=== PATIENT | female | born 1930 | race Caucasian/White ===

== ENCOUNTER 2017-03-20 13:33 | Emergency (ER) | payer OTHER ==
[~2017-03-20] VITALS: Ht 154.9 cm; Wt 70.3 kg
[~2017-03-20 13:33] MED LIST: ATIVAN1 MG PO; Advair HFA 115/21 IH; Ativan PO; CALTRATE 6001 TABLE2 PO; CENTRUM SILV1 TABLE1 PO; CENTRUM SILVER1 EAC3 PO; Colace PO; Ecotrin PO; FISH OIL SOFTG1 EACH PO; Feosol PO; HUMULIN 50100 UNIT/1 SC; HUMULIN N300 UNIT/3 SC; IMDUR60 MG PO; ISOSORBIDE MONO60 MG; LANTUS 3 M100 UNITS/ SC; LOSARTAN POTASS50 MG PO; Lopressor PO; METOPROLOL SUC100 MG PO; MIRALAX17 GM PO; Metamucil Packet PO; NITROSTAT,NITR0.4 M1 SL; NovoLIN N (NPH),Humu SC; OYST-CAL D, OS500 M1 PO; Omega III EPA + DHA PO; PEPCID20 MG PO; PREVACID30 MG PO; PROAIR HFA8.5 GM IH; PROTONIX40 MG PO; Robitussin AC,Tussi- PO; SENNA8.6 MG PO; SIMVASTATIN40 M1 PO; SPIRIVA1 INHALATI IH; Senokot,Sennagen PO; THERAGRAN1 TABLET PO; Tylenol Regular Stre PO; Vitamin B Complex PO; Zocor PO; Zoloft PO; predniSONE PO
[2017-03-20] MEDS ORDERED: VALIUM2 MG PO (17:23)
[2017-03-20] MEDS ORDERED: ULTRACET1 TABLET PO (17:23)
[2017-03-20] MEDS ORDERED: MOTRIN600 MG PO (17:23)
[2017-03-20 17:37] VITALS: BP 113/87
== END 2017-03-20 17:39 | disposition home or self-care (01) ==
LOC: EME 13:33
DX: M54.12 Radiculopathy, cervical region (principal); M50.30 Other cervical disc degeneration, unspecified cervical region; M51.37 Other intervertebral disc degeneration, lumbosacral region; M70.62 Trochanteric bursitis, left hip; M16.12 Unilateral primary osteoarthritis, left hip; G89.29 Other chronic pain; E11.9 Type 2 diabetes mellitus without complications; J44.9 Chronic obstructive pulmonary disease, unspecified; E78.5 Hyperlipidemia, unspecified; I10 Essential (primary) hypertension; I25.2 Old myocardial infarction; K21.9 Gastro-esophageal reflux disease without esophagitis; Z85.828 Personal history of other malignant neoplasm of skin; Z85.43 Personal history of malignant neoplasm of ovary; Z95.1 Presence of aortocoronary bypass graft; Z79.4 Long term (current) use of insulin; Z87.891 Personal history of nicotine dependence
CPT/HCPCS: 72040; 72100; 73502; 93005; 99281; 99284; J3010

== ENCOUNTER 2017-12-30 07:23 | Emergency (ER) | payer OTHER ==
[~2017-12-30] VITALS: Ht 154.9 cm; Wt 57.4 kg
[~2017-12-30 07:23] MED LIST changes: +MOTRIN600 MG PO; +ULTRACET1 TABLET PO; +VALIUM2 MG PO
[2017-12-30 07:56] LABS: HEMATOCRIT 40.2 % (36.0-46.0); HEMOGLOBIN 13.1 G/DL (11.9-15.5); MCH 30.4 PG (29.0-34.0); MCHC 32.6 G/DL (30.0-36.0); MCV 93.3 FL (83-99); PLATELET COUNT 181 K/uL (156-360); RBC DIS.WIDTH-CV 13.5 % (11.8-14.6); RBC DIS.WIDTH-SD 46.2 % (39-53); RED BLOOD COUNT 4.31 M/uL (3.80-5.20); WHITE BLOOD COUNT 7.5 K/uL (4.1-10.2)
[2017-12-30 08:24] LABS: CHLORIDE 99 MEQ/L (99-109); CREATININE 1.1 MG/DL (0.6-1.3); GFR ESTIMATE (CALCULATED) 50 mL/min/; GLUCOSE 133 mg/dL (70-99); POTASSIUM 4.1 MEQ/L (3.7-5.4); SODIUM 136 MEQ/L (136-147); UREA NITROGEN (BUN) 13 mg/dL (9-23)
[2017-12-30 08:27] LABS: TROP-I INTERPRETATION NEGATIVE; TROPONIN-I 0.01 ng/mL (0.0-0.30)
[2017-12-30 09:19] LABS: APPEARANCE SL.HAZY ((CLEAR)); BILIRUBIN NEGATIVE; BLOOD SMALL; COLOR YELLOW ((YELLOW)); GLUCOSE (STRIP) NEGATIVE; KETONES NEGATIVE; LEUKOCYTES MODERATE; NITRITE NEGATIVE; PROTEIN (STRIP) NEGATIVE; SPECIFIC GRAVITY 1.006 (1.000-1.030); UROBILINOGEN 0.2 MG/DL (0.2-1.0)
[2017-12-30 09:24] LABS: BACTERIA 2+ /HPF; CALCIUM OXALATE CRYSTALS 2+ /HPF; EPITHELIAL CELLS RARE /HPF; MUCUS NONE SEEN /LPF; RED BLOOD CELLS 0-5 /HPF (0-5); UCUL ADDED? YES; WHITE BLOOD CELLS 0-5 /HPF (0-5)
[2017-12-30] MEDS ORDERED: KEFLEX500 MG PO (11:03)
[2017-12-30 11:31] VITALS: BP 134/97
== END 2017-12-30 11:42 | disposition home or self-care (01) ==
LOC: EME 07:23
PROVIDERS: Emergency Medicine
DX: N39.0 Urinary tract infection, site not specified (principal); M25.552 Pain in left hip; G89.29 Other chronic pain; I10 Essential (primary) hypertension; E11.9 Type 2 diabetes mellitus without complications; E78.5 Hyperlipidemia, unspecified; J44.9 Chronic obstructive pulmonary disease, unspecified; K21.9 Gastro-esophageal reflux disease without esophagitis; F41.9 Anxiety disorder, unspecified; F32.9 Major depressive disorder, single episode, unspecified; I25.2 Old myocardial infarction; Z95.1 Presence of aortocoronary bypass graft; Z87.891 Personal history of nicotine dependence; Z85.43 Personal history of malignant neoplasm of ovary; Z85.828 Personal history of other malignant neoplasm of skin; Z79.4 Long term (current) use of insulin; Z91.040 Latex allergy status; Z88.2 Allergy status to sulfonamides; Z88.0 Allergy status to penicillin
CPT/HCPCS: 73502; 80048; 81003; 84484; 85027; 87086; 93005; 99281; 99284; J1885; J7030

== ENCOUNTER 2018-01-08 12:46 | Inpatient (IN) | payer OTHER ==
[~2018-01-08] VITALS: Ht 154.9 cm; Wt 65.3 kg
[~2018-01-08 12:46] MED LIST changes: +KEFLEX500 MG PO
[2018-01-08 13:35] LABS: BASOPHIL (%) 0.1 % (0-1); EOSINOPHIL (%) 0.1 % (0-5); HEMATOCRIT 43.3 % (36.0-46.0); HEMOGLOBIN 14.2 G/DL (11.9-15.5); LYMPHOCYTE (%) 9.2 % (15-42); LYMPHOCYTE COUNT 0.9 K/uL (1.0-2.8); MCH 30.3 PG (29.0-34.0); MCHC 32.8 G/DL (30.0-36.0); MCV 92.3 FL (83-99); MONOCYTE (%) 3.6 % (3-12); MONOCYTE COUNT 0.3 K/uL (0-0.8); PLATELET COUNT 209 K/uL (156-360); RBC DIS.WIDTH-CV 13.8 % (11.8-14.6); RBC DIS.WIDTH-SD 46.6 % (39-53); RED BLOOD COUNT 4.69 M/uL (3.80-5.20); WHITE BLOOD COUNT 9.3 K/uL (4.1-10.2)
[2018-01-08 13:55] LABS: CHLORIDE 98 mEq/L (99-109); SODIUM 134 mEq/L (136-147)
[2018-01-08 13:56] LABS: GLUCOSE 307 mg/dL (70-99)
[2018-01-08 14:00] LABS: GFR ESTIMATE (CALCULATED) 56 mL/min/
[2018-01-08 14:01] LABS: UREA NITROGEN (BUN) 19 mg/dL (9-23)
[2018-01-08 14:05] LABS: POTASSIUM 6.1 mEq/L (3.7-5.4)
[2018-01-08] MEDS ORDERED: NITROSTAT0.4 MG SL (15:38)
[2018-01-08] MEDS ORDERED: TRAMADOL HCL50 MG PO (15:38)
[2018-01-08] MEDS ORDERED: LOPRESSOR25 MG PO (15:41)
[2018-01-08] MEDS ORDERED: HUMALOG MI100 UNIT/5 SC ×2 (15:41)
[2018-01-08] MEDS ORDERED: ATORVASTATIN CA80 MG PO (15:42)
[2018-01-08] MEDS ORDERED: CLONAZEPAM0.5 MG PO (15:43)
[2018-01-08] MEDS ORDERED: ESOMEPRAZOLE MA40 MG PO (15:44)
[2018-01-08] MEDS ORDERED: EZETIMIBE10 MG PO (15:45)
[2018-01-08] MEDS ORDERED: MAG-OXIDE400 MG PO (15:47)
[2018-01-08] MEDS ORDERED: ANTIVERT25 MG PO (15:48)
[2018-01-08] MEDS ORDERED: ROPINIROLE HCL1 MG PO (15:49)
[2018-01-08] MEDS ORDERED: INCRUSE ELLI62.5 MCG IH (15:50)
[2018-01-08] MEDS ORDERED: PEPCID20 MG PO (15:51)
[2018-01-08] MEDS ORDERED: MIRALAX17 GM PO (15:51)
[2018-01-08 15:52] LABS: TROP-I INTERPRETATION NEGATIVE; TROPONIN-I < 0.01 ng/mL (0.0-0.30)
[2018-01-08 16:40] LABS: CHLORIDE 97 mEq/L (99-109); POTASSIUM 5.2 mEq/L (3.7-5.4); SODIUM 134 mEq/L (136-147)
[2018-01-08 16:42] LABS: GLUCOSE 303 mg/dL (70-99)
[2018-01-08 16:46] LABS: GFR ESTIMATE (CALCULATED) 56 mL/min/
[2018-01-08 16:47] LABS: UREA NITROGEN (BUN) 19 mg/dL (9-23)
[2018-01-08 18:32] VITALS: BP 211/95
[2018-01-08 21:40] LABS: GLUCOSE 404 mg/dL (70-99)
[2018-01-08 23:14] VITALS: BP 145/78
[2018-01-09 06:10] LABS: HEMATOCRIT 38.3 % (36.0-46.0); HEMOGLOBIN 12.1 G/DL (11.9-15.5); MCH 29.4 PG (29.0-34.0); MCHC 31.6 G/DL (30.0-36.0); NRBC (%) 0.2 /100 WBC (0-0); PLATELET COUNT 183 K/uL (156-360); RBC DIS.WIDTH-CV 13.9 % (11.8-14.6); RBC DIS.WIDTH-SD 46.8 % (39-53); RED BLOOD COUNT 4.12 M/uL (3.80-5.20); WHITE BLOOD COUNT 9.6 K/uL (4.1-10.2)
[2018-01-09 06:35] LABS: ALBUMIN 2.7 G/DL (3.2-4.8); ALKALINE PHOSPHATASE 46 IU/L (3-129); ALT (GPT) 15 IU/L (3-49); AST (GOT) 12 IU/L (2-34); CHLORIDE 102 MEQ/L (99-109); GFR ESTIMATE (CALCULATED) 56 mL/min/; POTASSIUM 4.3 MEQ/L (3.7-5.4); SODIUM 138 MEQ/L (136-147); TOTAL BILIRUBIN 0.4 MG/DL (0.0-1.0); TOTAL PROTEIN 4.3 G/DL (6.4-8.3); UREA NITROGEN (BUN) 19 mg/dL (9-23)
[2018-01-09 06:47] LABS: GLUCOSE 96 mg/dL (70-99)
[2018-01-09 07:20] VITALS: BP 113/54
[2018-01-09 16:51] VITALS: BP 112/59
[2018-01-09 19:55] VITALS: BP 112/56
[2018-01-10] VITALS (7 sets, daily range): BP systolic 105–159; BP diastolic 52–65
[2018-01-10 06:58] LABS: CHLORIDE 102 MEQ/L (99-109); CREATININE 1.1 MG/DL (0.6-1.3); GFR ESTIMATE (CALCULATED) 50 mL/min/; GLUCOSE 109 mg/dL (70-99); POTASSIUM 4.5 MEQ/L (3.7-5.4); SODIUM 140 MEQ/L (136-147); UREA NITROGEN (BUN) 18 mg/dL (9-23)
[2018-01-10 17:04] LABS: APPEARANCE CLEAR ((CLEAR)); BILIRUBIN NEGATIVE; BLOOD NEGATIVE; COLOR STRAW ((YELLOW)); GLUCOSE (STRIP) 50; KETONES NEGATIVE; LEUKOCYTES MODERATE; NITRITE NEGATIVE; PROTEIN (STRIP) NEGATIVE; SPECIFIC GRAVITY 1.003 (1.000-1.030); UROBILINOGEN 0.2 MG/DL (0.2-1.0)
[2018-01-10 18:15] LABS: BACTERIA RARE /HPF; EPITHELIAL CELLS RARE /HPF; MUCUS NONE SEEN /LPF; RED BLOOD CELLS 40-50 /HPF (0-5); UCUL ADDED? YES
[2018-01-11 06:06] LABS: BASOPHIL (%) 0.4 % (0-1); EOSINOPHIL (%) 3.4 % (0-5); EOSINOPHIL COUNT 0.3 K/uL (0-0.3); HEMATOCRIT 38.1 % (36.0-46.0); IMMATURE GRANULOCYTE (%) 3.5 % (0.0-0.7); LYMPHOCYTE (%) 19.3 % (15-42); LYMPHOCYTE COUNT 1.8 K/uL (1.0-2.8); MCH 30.1 PG (29.0-34.0); MCHC 31.5 G/DL (30.0-36.0); MCV 95.5 FL (83-99); MONOCYTE (%) 9.4 % (3-12); MONOCYTE COUNT 0.9 K/uL (0-0.8); NEUTROPHIL COUNT 5.9 K/uL (1.8-6.4); PLATELET COUNT 162 K/uL (156-360); RBC DIS.WIDTH-CV 14.2 % (11.8-14.6); RBC DIS.WIDTH-SD 49.5 % (39-53); RED BLOOD COUNT 3.99 M/uL (3.80-5.20); WHITE BLOOD COUNT 9.2 K/uL (4.1-10.2)
[2018-01-11 06:45] LABS: ALKALINE PHOSPHATASE 55 IU/L (3-129); ALT (GPT) 19 IU/L (3-49); AST (GOT) 15 IU/L (2-34); CHLORIDE 102 MEQ/L (99-109); GFR ESTIMATE (CALCULATED) 56 mL/min/; GLUCOSE 134 mg/dL (70-99); POTASSIUM 5.2 MEQ/L (3.7-5.4); SODIUM 141 MEQ/L (136-147); TOTAL BILIRUBIN 0.4 MG/DL (0.0-1.0); TOTAL PROTEIN 4.8 G/DL (6.4-8.3); UREA NITROGEN (BUN) 11 mg/dL (9-23)
[2018-01-11 08:00] VITALS: BP 131/60
[2018-01-11 12:00] VITALS: BP 135/62
[2018-01-11] MEDS ORDERED: GABAPENTIN300 MG PO (12:03)
[2018-01-11] MEDS ORDERED: Salonpas 4% Patch TD (12:04)
[2018-01-11] MEDS ORDERED: TRAMADOL HCL50 MG PO (12:04)
[2018-01-11] MEDS ORDERED: NOVOLOG 10100 UNITS/ SC (12:04)
[2018-01-11] MEDS ORDERED: ROXICODONE5 MG PO (14:25)
[2018-01-11 15:34] VITALS: BP 148/67
== END 2018-01-11 15:52 | DRG 552 ==
LOC: EME 12:46 → 5EAST 14:48 → EDOF 14:48 → ENRESERV 14:52 → 5EAST 17:36
PROVIDERS: Emergency Medicine; Hospitalist; Internal Medicine; Physician Assistant
DX: M48.061 Spinal stenosis, lumbar region without neurogenic claudication (principal); E87.5 Hyperkalemia; M51.16 Intervertebral disc disorders with radiculopathy, lumbar region; M70.62 Trochanteric bursitis, left hip; R41.0 Disorientation, unspecified; T40.4X1A Poisoning by other synthetic narcotics, accidental (unintentional), initial encounter; T42.4X1A Poisoning by benzodiazepines, accidental (unintentional), initial encounter; E11.40 Type 2 diabetes mellitus with diabetic neuropathy, unspecified; E11.65 Type 2 diabetes mellitus with hyperglycemia; J44.9 Chronic obstructive pulmonary disease, unspecified; S80.812A Abrasion, left lower leg, initial encounter; W19.XXXA Unspecified fall, initial encounter; Y92.009 Unspecified place in unspecified non-institutional (private) residence as the place of occurrence of the external cause; R42 Dizziness and giddiness; M16.12 Unilateral primary osteoarthritis, left hip; M47.26 Other spondylosis with radiculopathy, lumbar region; M51.37 Other intervertebral disc degeneration, lumbosacral region; I10 Essential (primary) hypertension; I25.10 Atherosclerotic heart disease of native coronary artery without angina pectoris; E78.5 Hyperlipidemia, unspecified; K21.9 Gastro-esophageal reflux disease without esophagitis; G89.29 Other chronic pain; I25.2 Old myocardial infarction; F32.9 Major depressive disorder, single episode, unspecified; F41.9 Anxiety disorder, unspecified; Z91.81 History of falling; Z60.2 Problems related to living alone; Z85.828 Personal history of other malignant neoplasm of skin; Z85.43 Personal history of malignant neoplasm of ovary; Z87.891 Personal history of nicotine dependence; Z95.5 Presence of coronary angioplasty implant and graft; Z95.1 Presence of aortocoronary bypass graft; Z79.4 Long term (current) use of insulin; Z90.710 Acquired absence of both cervix and uterus; Z82.49 Family history of ischemic heart disease and other diseases of the circulatory system
CPT/HCPCS: 70450; 72120; 72131; 72148; 72192; 80048; 80048 91; 80053; 81003; 82948; 84484; 84999; 85025; 85027; 87086; 93005; 93971; 94640; 94640 76; 94799; 97530 GP; 99202; 99281; 99285; J1170; J1644; J1815; J1885; J7030

== ENCOUNTER 2018-01-26 06:49 | Inpatient (IN) | payer OTHER ==
[~2018-01-26] VITALS: Ht 152.4 cm; Wt 60.3 kg
[~2018-01-26 06:49] MED LIST changes: +ANTIVERT25 MG PO; +ATORVASTATIN CA80 MG PO; +DULCOLAX10 MG PR; +ENEMA BOTTLE1 EACH MC; +ESOMEPRAZOLE MA40 MG PO; +EZETIMIBE10 MG PO; +GABAPENTIN300 MG PO; +HUMALOG JU100 UNIT/1 SC; +HUMALOG MI100 UNIT/5 SC; +INCRUSE ELLI62.5 MCG IH; +KLONOPIN0.5 M1 PO; +LOPRESSOR25 MG PO; +MAG-OXIDE400 MG PO; +MILK OF MAGN PO; +NEURONTIN300 MG PO; +NITROSTAT0.4 MG SL; +NOVOLOG 10100 UNITS/ SC; +ROPINIROLE HCL1 MG PO; +ROXICODONE5 MG PO; +SALONPAS PATCH1 EAC1 TD; +Salonpas 4% Patch TD; +TRAMADOL HCL50 MG PO; +TYLENOL325 M2 PO; +ULTRAM50 MG PO
[2018-01-26 11:26] VITALS: BP 121/56
[2018-01-26 19:48] VITALS: BP 109/67
[2018-01-26 20:09] VITALS: BP 109/67
[2018-01-27 00:21] VITALS: BP 115/58
[2018-01-27 03:48] VITALS: BP 122/60
[2018-01-27 07:20] VITALS: BP 120/56
[2018-01-27 10:50] VITALS: BP 112/52
[2018-01-27 16:30] VITALS: BP 123/61
[2018-01-28 00:15] VITALS: BP 150/62
[2018-01-28 04:36] VITALS: BP 144/60
[2018-01-28 07:53] VITALS: BP 161/67
[2018-01-28 16:05] VITALS: BP 132/61
[2018-01-29 00:07] VITALS: BP 135/63
[2018-01-29 08:08] VITALS: BP 150/72
[2018-01-29 16:30] VITALS: BP 137/61
[2018-01-29 20:39] VITALS: BP 115/56
[2018-01-29 23:34] VITALS: BP 142/62
[2018-01-30 08:07] VITALS: BP 129/62
[2018-01-30] MEDS ORDERED: HYDROCODON-ACE1 EAC7 PO (08:10)
[2018-01-30] MEDS ORDERED: BACLOFEN10 MG PO (08:10)
== END 2018-01-30 16:42 | DRG 517 ==
LOC: SDC 06:49 → ENRESERV 18:03 → 2SOUTH 18:05 → ENRESERV 19:00 → 3EAST 19:15
PROVIDERS: Neurological Surgery
DX: M51.26 Other intervertebral disc displacement, lumbar region (principal); M48.062 Spinal stenosis, lumbar region with neurogenic claudication; M51.37 Other intervertebral disc degeneration, lumbosacral region; M46.97 Unspecified inflammatory spondylopathy, lumbosacral region; R26.1 Paralytic gait; R29.6 Repeated falls; G89.29 Other chronic pain; M54.16 Radiculopathy, lumbar region; M81.0 Age-related osteoporosis without current pathological fracture
CPT/HCPCS: 72020; 76000; 82948; 87641; 94640; 94640 76; 94799; 97530 GP; 99202; J0131; J1170; J1815; J3480; S0020

== ENCOUNTER 2018-02-01 19:39 | Emergency (ER) | payer OTHER ==
[~2018-02-01] VITALS: Ht 152.4 cm; Wt 60.1 kg
[~2018-02-01 19:39] MED LIST changes: +BACLOFEN10 MG PO; +HYDROCODON-ACE1 EAC7 PO
[2018-02-01 21:04] LABS: BASOPHIL (%) 0.5 % (0-1); EOSINOPHIL COUNT 0.2 K/uL (0-0.3); HEMATOCRIT 35.7 % (36.0-46.0); HEMOGLOBIN 11.7 G/DL (11.9-15.5); IMMATURE GRANULOCYTE (%) 1.5 % (0.0-0.7); LYMPHOCYTE (%) 18.1 % (15-42); LYMPHOCYTE COUNT 1.1 K/uL (1.0-2.8); MCH 30.3 PG (29.0-34.0); MCHC 32.8 G/DL (30.0-36.0); MCV 92.5 FL (83-99); MONOCYTE (%) 11.5 % (3-12); MONOCYTE COUNT 0.7 K/uL (0-0.8); NEUTROPHIL (%) 64.4 % (45-76); NEUTROPHIL COUNT 3.7 K/uL (1.8-6.4); PLATELET COUNT 224 K/uL (156-360); RBC DIS.WIDTH-CV 14.3 % (11.8-14.6); RBC DIS.WIDTH-SD 48.3 % (39-53); RED BLOOD COUNT 3.86 M/uL (3.80-5.20); WHITE BLOOD COUNT 5.8 K/uL (4.1-10.2)
[2018-02-01 21:04] LABS: APPEARANCE CLEAR ((CLEAR)); BILIRUBIN NEGATIVE; BLOOD NEGATIVE; COLOR STRAW ((YELLOW)); GLUCOSE (STRIP) >=500; KETONES 5; LEUKOCYTES NEGATIVE; NITRITE NEGATIVE; PROTEIN (STRIP) NEGATIVE; SPECIFIC GRAVITY 1.005 (1.000-1.030); UCUL ADDED? NO; UROBILINOGEN 0.2 MG/DL (0.2-1.0)
[2018-02-01 21:30] LABS: ALBUMIN 3.2 g/dL (3.2-4.8); CHLORIDE 104 mEq/L (99-109); POTASSIUM 4.1 mEq/L (3.7-5.4); SODIUM 142 mEq/L (136-147)
[2018-02-01 21:32] LABS: GLUCOSE 222 mg/dL (70-99); TOTAL PROTEIN 5.5 g/dL (6.4-8.3)
[2018-02-01 21:34] LABS: TOTAL BILIRUBIN 0.5 mg/dL (0.0-1.0)
[2018-02-01 21:36] LABS: ALKALINE PHOSPHATASE 92 IU/L (3-129); CREATININE 0.8 mg/dL (0.6-1.3); GFR ESTIMATE (CALCULATED) > 59 mL/min/
[2018-02-01 21:36] LABS: AMPHETAMINE NEGATIVE (500 ng/mL); BARBITURATES NEGATIVE (200 ng/mL); BENZODIAZEPINES NEGATIVE (150 ng/mL); BUPRENORPHINE NEGATIVE (10 ng/mL); COCAINE NEGATIVE (150 ng/mL); METHADONE NEGATIVE (200 ng/mL); METHAMPHETAMINE NEGATIVE (500 ng/mL); OPIATES (MORPHINE) PRESUMPTIVE POSITIVE (100 ng/mL); OXYCODONE NEGATIVE (100 ng/mL); PHENCYCLIDINE NEGATIVE (25 ng/mL); PROPOXYPHENE NEGATIVE (300 ng/mL); THC CANNABINOIDS NEGATIVE (50 ng/mL); TRICYCLIC ANTIDEPRESSANTS NEGATIVE (300 ng/mL)
[2018-02-01 21:37] LABS: UREA NITROGEN (BUN) 5 mg/dL (9-23)
[2018-02-01 21:38] LABS: AST (GOT) 14 IU/L (2-34)
[2018-02-01 21:39] LABS: ALT (GPT) 18 IU/L (3-49)
[2018-02-01 21:41] LABS: TROP-I INTERPRETATION NEGATIVE; TROPONIN-I 0.02 ng/mL (0.0-0.30)
[2018-02-01 22:30] VITALS: BP 144/104
== END 2018-02-02 ==
LOC: EME 19:39
PROVIDERS: Emergency Medicine
DX: R44.3 Hallucinations, unspecified (principal); T40.2X5A Adverse effect of other opioids, initial encounter; Z98.890 Other specified postprocedural states; J44.9 Chronic obstructive pulmonary disease, unspecified; I25.2 Old myocardial infarction; E78.5 Hyperlipidemia, unspecified; E11.9 Type 2 diabetes mellitus without complications; Z79.4 Long term (current) use of insulin; Z95.1 Presence of aortocoronary bypass graft; Z85.43 Personal history of malignant neoplasm of ovary; Z85.828 Personal history of other malignant neoplasm of skin; Z88.0 Allergy status to penicillin; Z88.2 Allergy status to sulfonamides; Z87.891 Personal history of nicotine dependence
CPT/HCPCS: 70450; 80053; 81003; 82948; 84484; 84999; 85025; 93005; 99281; 99285; J2060; J7030